=== PATIENT | female | born 1985 | race Caucasian/White ===

== ENCOUNTER 2016-11-29 23:34 | Emergency (ER) | payer MEDICAID ==
[~2016-11-29] VITALS: Ht 165.1 cm; Wt 98.0 kg
[2016-11-29 23:36] VITALS: BP 126/90
[2016-11-30] MEDS ORDERED: traMADol HCL 50 MG TAB PO ONE (03:15)
== END 2016-11-30 03:55 | disposition home or self-care (01) ==
LOC: ER 23:36
DX: S05.12XA Contusion of eyeball and orbital tissues, left eye, initial encounter (principal); F17.210 Nicotine dependence, cigarettes, uncomplicated; Y08.89XA Assault by other specified means, initial encounter; Y93.89 Activity, other specified; Y99.8 Other external cause status; Y92.89 Other specified places as the place of occurrence of the external cause
CPT/HCPCS: 70480

== ENCOUNTER 2018-01-16 10:54 | Emergency (ER) | payer MEDICAID ==
[~2018-01-16] VITALS: Ht 165.1 cm; Wt 90.7 kg
[2018-01-16 11:26] VITALS: BP 130/76
[2018-01-16] MEDS ORDERED: cefTRIAXone SOD 1,000 MG VL IM ONE (12:45)
[2018-01-16] MEDS ORDERED: LIDOCAINE W/ EPINEPHRINE 1 % INJ 30ML ONE (12:47)
== END 2018-01-16 14:30 | disposition home or self-care (01) ==
LOC: ER 10:54
DX: J02.0 Streptococcal pharyngitis (principal); F17.210 Nicotine dependence, cigarettes, uncomplicated
CPT/HCPCS: J0696

== ENCOUNTER 2020-11-07 21:34 | Emergency (ER) | payer MEDICAID ==
[~2020-11-07] VITALS: Ht 165.1 cm; Wt 90.7 kg
[2020-11-07] MEDS ORDERED: SODIUM CHLORIDE 0.9% 1,000 ML IV ONE (21:45)
[2020-11-07] MEDS ORDERED: EPINEPHrine HCL 1 MG/1 ML AMP SC ONE (21:45)
[2020-11-07] MEDS ORDERED: diphenhdrAMINE HCL 50 MG/1 ML VL IV ONE (21:45)
[2020-11-07] MEDS ORDERED: methylPREDNISolone SOD SUCC 125 MG/2 ML VL IV ONE (21:45)
[2020-11-07] MEDS ORDERED: diphenhdrAMINE HCL 12.5 MG/5 ML UD PO ONE (22:45)
[2020-11-07 23:00] VITALS: BP 141/89
[2020-11-07 23:17] LABS: Basophils # (auto) 0 10 ^3/uL (0-0.2); Basophils % (auto) 0.5 % (0.0-2.0); Eosinophils # (auto) 0.2 10 ^3/uL (0-0.8); Eosinophils % (auto) 2.5 % (0.0-7.0); Hematocrit 43.8 % (36.0-46.0); Hemoglobin 14.8 g/dL (12.2-16.2); Lymphocytes # (auto) 2.3 10 ^3/uL (0.4-5.4); Lymphocytes % (auto) 25.9 % (10.0-50.0); Mean Corpuscular Hemoglobin 29.2 pg (28.0-32.0); Mean Corpuscular Hgb Conc. 33.9 g/dL (32.0-36.0); Mean Corpuscular Volume 86.4 fL (80.0-100.0); Monocytes # (auto) 0.7 10 ^3/uL (0-1.3); Monocytes % (auto) 7.3 % (0.0-12.0); Neutrophils # (auto) 5.8 10 ^3/uL (1.6-8.6); Neutrophils % (auto) 63.8 % (37.0-80.0); Nucleated Red Blood Cells % 0.1 %; Red Blood Cells 5.07 10^6/uL (4.0-5.20); Red Cell Distribution Width 13.9 % (11.8-14.3)
[2020-11-07 23:28] LABS: Potassium 3.6 mmol/L (3.5-5.1)
[2020-11-07 23:35] LABS: Albumin 3.5 g/dL (3.4-5.0); BUN/Creatinine Ratio 14.9; Bilirubin, Total 0.3 mg/dL (0.2-1.0); Calcium 8.7 mg/dL (8.5-10.1); Total Protein 7.5 g/dL (6.4-8.2)
== END 2020-11-07 23:41 | disposition home or self-care (01) ==
LOC: ER 21:35
DX: R22.0 Localized swelling, mass and lump, head (principal); T50.995A Adverse effect of other drugs, medicaments and biological substances, initial encounter; F17.210 Nicotine dependence, cigarettes, uncomplicated; Z98.890 Other specified postprocedural states; Y92.89 Other specified places as the place of occurrence of the external cause
CPT/HCPCS: 36415; 80053; 85025; 96360; 96372; 99283; J0171; J1200; J2930

== ENCOUNTER → 2022-10-21 | Emergency (ER) | payer MEDICAID ==
[~2022-10-21] VITALS: Ht 170.2 cm; Wt 97.7 kg
[2022-10-21 03:12] VITALS: BP 116/84; PULSE 107; RESP 20; O2SAT 99
== END | disposition left against medical advice (07) ==
LOC: ER 02:34
DX: M54.50 Low back pain, unspecified (principal); Z53.21 Procedure and treatment not carried out due to patient leaving prior to being seen by health care provider
CPT/HCPCS: 72100

== ENCOUNTER 2022-11-10 17:55 | Emergency (ER) | payer MEDICAID ==
[~2022-11-10] VITALS: Ht 165.1 cm; Wt 94.7 kg
[2022-11-10 20:11] VITALS: BP 116/80; PULSE 92; RESP 18; TEMP 98; O2SAT 95
== END 2022-11-10 20:53 | disposition left against medical advice (07) ==
LOC: ER 17:55
DX: M54.50 Low back pain, unspecified (principal); Z53.21 Procedure and treatment not carried out due to patient leaving prior to being seen by health care provider

== ENCOUNTER 2024-04-11 17:37 | Emergency (ER) | payer MEDICAID ==
[~2024-04-11] VITALS: Ht 165.1 cm; Wt 101.2 kg
[2024-04-11 18:21] VITALS: BP 134/82; PULSE 87; RESP 16; TEMP 97.6; O2SAT 98
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
== END 2024-04-11 18:55 | disposition home or self-care (01) ==
LOC: ER 17:37
DX: S80.11XA Contusion of right lower leg, initial encounter (principal); F17.210 Nicotine dependence, cigarettes, uncomplicated; W51.XXXA Accidental striking against or bumped into by another person, initial encounter; Y93.89 Activity, other specified; Y92.89 Other specified places as the place of occurrence of the external cause; Y99.8 Other external cause status
CPT/HCPCS: 73590

== ENCOUNTER 2024-07-29 02:45 | Emergency (ER) | payer MEDICAID ==
[~2024-07-29] VITALS: Ht 165.1 cm; Wt 100.9 kg
[2024-07-29 03:00] VITALS: BP 134/58; PULSE 95; RESP 18; TEMP 98.3; O2SAT 99
--- NOTE | 2024-07-29 03:22 | ED.PDOC ---
General HPI Comments PATIENT C/O LEFT SIDED BACK PAIN, BILATERAL HAND NUMBNESS, DECREASED CONTROL OF HER BLADDER (URGENCY,) LEFT BODY PAIN WITH STEPPING. 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 Family History Family History: Unknown Social History Smoker: Cigarettes Alcohol: Denies ETOH Use Drugs: Denies Drug Use Lives In: Home Constitutional: denies: chills, diaphoresis, fatigue, fever, malaise, sweats, weakness, others EENTM: denies: blurred vision, double vision, ear bleeding, ear discharge, ear drainage, ear pain, ear ringing, eye pain, eye redness, hearing loss, mouth pain, mouth swelling, nasal discharge, nose bleeding, nose congestion, nose pain, photophobia, tearing, throat pain, throat swelling, voice changes, others Respiratory: denies: cough, hemoptysis, orthopnea, SOB at rest, shortness of breath, SOB with excertion, stridor, wheezing, others Cardiovascular: denies: chest pain, dizzy spells, diaphoresis, Dyspnea on exertion, edema, irregular heart beat, left arm pain, lightheadedness, palpitations, PND, syncope, others Gastrointestinal: denies: abdomen distended, abdominal pain, blood streaked bowels, constipated, diarrhea, dysphagia, difficulty swallowing, hematemesis, melena, nausea, poor appetite, poor fluid intake, rectal bleeding, rectal pain, vomiting, others Genitourinary: reports: flank pain, frequency; denies: abnormal vagina bleeding, burning, dyspareunia, dysuria, hematuria, incontinence, pain, , vagina discharge, urgency, others Neurological: denies: dizziness, fainting, headache, left sided numbness, left sided weakness, numbness, paresthesia, pre-existing deficit, right sided numbness, right sided weakness, seizure, speech problems, tingling, tremors, weakness, others Musculoskeletal: denies: back pain, gout, joint pain, joint swelling, muscle pain, muscle stiffness, neck pain, others Integumetry: denies: bruises, change in color, change in hair/nails, dryness, laceration, lesions, lumps, rash, wounds, others Allergic/Immunocompromised: denies: Difficulty Healing, Frequent Infections, Hives, Itching, others Hematologic/Lymphatic: denies: anemia, blood clots, easy bleeding, easy bruising, swollen glands, others Endocrine: denies: excessive hunger, excessive sweating, excessive thirst, excessive urination, flushing, intolerance to cold, intolerance to heat, unexplained weight gain, unexplained weight loss, others Psychiatric: denies: anxiety, bipolar disorder, depression, hopeless, panic disorder, schizophrenia, sleepless, suicidal, others Physical Exam General Appearance: No Apparent Distress, Normal HEENT: Pharynx Normal Neck: Full Range of Motion, Non-Tender Respiratory: Lungs Clear, No Respiratory Distress, Normal Breath Sounds Cardiovascular: No Murmur, Normal Peripheral Pulses, Regular Rate/Rhythm Breast Exam: Deferred Gastrointestinal: No Organomegaly, Non Tender, No Pulsatile Mass, Normal Bowel Sounds, Soft, Suprapubic, Tenderness, Other (Positive CVA tenderness) Genitalia: Deferred Pelvic: Deferred Rectal: Deferred Extremities: Normal range of motion Musculoskeletal : Apperance: Normal Neurologic: Alert, No Motor Deficits, Normal Affect, Normal Mood, No Sensory Deficits Cerebellar Function: Normal Reflexes: Normal Skin: Dry, Normal Color, Warm Lymphatic: No Adenopathy Was a procedure done? Was a procedure done?: No Differential Diagnosis Kidney stone (Female): Pyelonephritis, Strain, Urinary obstruction, Urolithiasis X-Ray, Labs, Meds, VS Vital Signs Date Time Temp Pulse Resp B/P (MAP) Pulse Ox O2 Delivery O2 Flow Rate FiO2 07/29/24 03:00 98.3 95 18 134/58 (83) 99 98.3 X-Ray, Labs, Meds, VS Comment LOBBY, OUTSIDE, AND 10 X 3 PATIENT NO ANSWER Time of 1ST Reevaluation: 03:20 Reevaluation 1ST: Unchanged Patient Education/Counseling: Diagnosis, Treatment, Prognosis, Need For Follow Up Family Education/Counseling: No Family Present Departure 1 Departure Time of Disposition: 05:09 Impression: Primary Impression: Back pain Qualified Codes: M54.50 - Low back pain, unspecified Disposition: LEFT AWOL/ELOPED Condition: Stable Discharged With: Self Critical Care Note Critical Care Time?: No Stability Stability form required: LES Diaz Jul 29, 2024 03:22
== END 2024-07-29 05:08 | disposition left against medical advice (07) ==
LOC: ER 02:45
DX: M54.9 Dorsalgia, unspecified (principal); F17.210 Nicotine dependence, cigarettes, uncomplicated

== ENCOUNTER 2024-07-29 15:26 | Inpatient (IN) | payer MEDICAID ==
[~2024-07-29] VITALS: Ht 165.1 cm; Wt 101.0 kg
[2024-07-29 15:32] VITALS: TEMP 97.7
--- NOTE | 2024-07-29 15:40 | ED.PDOC ---
Back pain HPI HPI Comments 39-year-old female brought in by family complaining of lower back pain since yesterday. Patient reports urinary incontinence that started a week ago, without dysuria, abdominal pain, flank pain or urinary frequency. She states she was doing yd work and moving some rocks yesterday, after which she developed severe low back pain. She came to ER yesterday for evaluation of her pain but decided not to stay. She states she woke up this morning with severe low back pain, was unable to ambulate due to the pain, so return to the ER. Denies any extremity weakness, but states she has still been having occasional urinary incontinence. 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 Family History Family History: Reviewed,noncontributory to illness, Unknown Social History Smoker: Unknown Alcohol: Unknown Drugs: Unknown Lives In: Home Constitutional: denies: chills, diaphoresis, fatigue, fever, malaise, sweats, weakness, others EENTM: denies: blurred vision, double vision, ear bleeding, ear discharge, ear drainage, ear pain, ear ringing, eye pain, eye redness, hearing loss, mouth pain, mouth swelling, nasal discharge, nose bleeding, nose congestion, nose pain, photophobia, tearing, throat pain, throat swelling, voice changes, others Respiratory: denies: cough, hemoptysis, orthopnea, SOB at rest, shortness of breath, SOB with excertion, stridor, wheezing, others Cardiovascular: denies: chest pain, dizzy spells, diaphoresis, Dyspnea on exertion, edema, irregular heart beat, left arm pain, lightheadedness, palpitations, PND, syncope, others Gastrointestinal: denies: abdomen distended, abdominal pain, blood streaked bowels, constipated, diarrhea, dysphagia, difficulty swallowing, hematemesis, melena, nausea, poor appetite, poor fluid intake, rectal bleeding, rectal pain, vomiting, others Genitourinary: denies: abnormal vagina bleeding, burning, dyspareunia, dysuria, flank pain, frequency, hematuria, incontinence, pain, , vagina discharge, urgency, others Neurological: denies: dizziness, fainting, headache, left sided numbness, left sided weakness, numbness, paresthesia, pre-existing deficit, right sided numbness, right sided weakness, seizure, speech problems, tingling, tremors, weakness, others Musculoskeletal: reports: back pain; denies: gout, joint pain, joint swelling, muscle pain, muscle stiffness, neck pain, others Integumetry: denies: bruises, change in color, change in hair/nails, dryness, laceration, lesions, lumps, rash, wounds, others Allergic/Immunocompromised: denies: Difficulty Healing, Frequent Infections, Hives, Itching, others Hematologic/Lymphatic: denies: anemia, blood clots, easy bleeding, easy bruising, swollen glands, others Endocrine: denies: excessive hunger, excessive sweating, excessive thirst, excessive urination, flushing, intolerance to cold, intolerance to heat, unexplained weight gain, unexplained weight loss, others Psychiatric: denies: anxiety, bipolar disorder, depression, hopeless, panic disorder, schizophrenia, sleepless, suicidal, others All Other Systems: Reviewed and Negative Physical Exam General Appearance: Mild Distress HEENT: Other (Pupils and face symmetric. Moist mucous membranes.) Neck: Full Range of Motion, Non-Tender, Normal Inspection Respiratory: Lungs Clear, No Accessory Muscle Use, No Respiratory Distress, Normal Breath Sounds Cardiovascular: No Edema, No JVD, Regular Rate/Rhythm Breast Exam: Deferred Gastrointestinal: Non Tender, Soft Genitalia: Deferred Pelvic: Deferred Rectal: Deferred Extremities: No calf tenderness, Normal inspection, Normal range of motion, Non-tender, No pedal edema Musculoskeletal : Apperance: Normal Neurologic: Alert (Oriented x4), No Motor Deficits, Other (Diminished sensation bilateral hands thumb through 4th fingers) Cerebellar Function: NOT DONE Reflexes: NOT DONE Skin: Dry, Normal Color, Warm Lymphatic: NOT DONE Was a procedure done? Was a procedure done?: No Back Pain Differential Dx Differential Diagnosis: DJD, Musculoskeletal Pain, Strain, Urolithiasis, Other (Disc disease, cord compression/spinal stenosis, among others) X-Ray, Labs, Meds, VS Vital Signs Date Time Temp Pulse Resp B/P (MAP) Pulse Ox O2 Delivery O2 Flow Rate FiO2 07/29/24 17:17 81 18 106/54 (71) 99 07/29/24 17:17 77 18 99 Room Air 07/29/24 15:32 97.7 90 16 113/79 (90) 99 97.7 Lab Test 07/29/24 17:00 07/29/24 15:57 Range/Units Urine Color Yellow Yellow Urine Clarity Clear Clear Urine pH 6.5 5.0-9.0 Urine Specific Paia 1.021 1.001-1.035 Urine Protein Negative Negative Urine Ketones Negative Negative Urine Blood Negative Negative /uL Urine Nitrite Negative Negative Urine Bilirubin Negative Negative Urine Urobilinogen Normal Negative mg/dL Urine Leukocyte Esterase Negative Negative /uL Urine RBC None seen 0 - 4 /hpf Urine Microscopic WBC 1 0-5 /HPF Urine Squamous Epithelial Cells Mod <5 /hpf Urine Bacteria None seen None Seen /hpf Urine Mucus Few None Seen Urine Glucose Normal Normal mg/dL Urine Test Negative Negative White Blood Count 7.9 4.4-10.8 10^3/uL Red Blood Count 5.16 4.0-5.20 10^6/uL Hemoglobin 14.9 12.2-16.2 g/dL Hematocrit 44.5 36.0-46.0 % Mean Corpuscular Volume 86.4 80.0-100.0 fL Mean Corpuscular Hemoglobin 28.9 28.0-32.0 pg Mean Corpuscular Hemoglobin Concent 33.4 32.0-36.0 g/dL Red Cell Distribution Width 14.5 H 11.8-14.3 % Platelet Count 246 140-450 10^3/uL Mean Platelet Volume 9.0 6.9-10.8 fL Neutrophils (%) (Auto) 55.5 37.0-80.0 % Lymphocytes (%) (Auto) 34.2 10.0-50.0 % Monocytes (%) (Auto) 7.0 0.0-12.0 % Eosinophils (%) (Auto) 2.8 0.0-7.0 % Basophils (%) (Auto) 0.5 0.0-2.0 % Neutrophils # (Auto) 4.4 1.6-8.6 10 ^3/uL Lymphocytes # (Auto) 2.7 0.4-5.4 10 ^3/uL Monocytes # (Auto) 0.5 0-1.3 10 ^3/uL Eosinophils # (Auto) 0.2 0-0.8 10 ^3/uL Basophils # (Auto) 0 0-0.2 10 ^3/uL Nucleated Red Blood Cells 0.0 % Sodium Level 141 136-145 mmol/L Potassium Level 4.1 3.5-5.1 mmol/L Chloride Level 108 H 98-107 mmol/L Carbon Dioxide Level 29 20-31 mmol/L Anion Gap 4 L 5-15 Blood Urea Nitrogen 7 L 9-23 mg/dL Creatinine 0.75 0.550-1.02 mg/dL Glomerular Filtration Rate Calc 105 >90 mL/min BUN/Creatinine Ratio 9.3 L 10.0-20.0 Serum Glucose 87 74-106 mg/dL Calcium Level 9.6 8.7-10.4 mg/dL Current Medications Medications (Trade) Dose Ordered Sig/Anjelica Route Start Time Stop Time Status Last Admin Acetaminophen/ Hydrocodone Bitart (Bromide 10/325MG Tab) 1 tab ONCE ONCE PO 07/29/24 15:45 07/29/24 15:46 DC 07/29/24 17:27 Methocarbamol (Robaxin) 1,000 mg ONCE ONCE PO 07/29/24 17:00 07/29/24 17:02 DC 07/29/24 17:35 PROCEDURE(s): TS2CT - THORACIC SPINE WO CONTRAS REASON: back pain, urinary incontinence ORDER NUMBER(s): [id number], ACCESSION NUMBER(s): [id number] CT OF THE THORACIC SPINE WITHOUT CONTRAST HISTORY: back pain, urinary incontinence COMPARISON: None TECHNIQUE: Axial images through the thoracic spine were obtained without contrast. Coronal and sagittal reformats were obtained. One or more of the following radiation dose reduction techniques were used for this examination: automated exposure control, adjustment of the mA and/or kV according to patient size, use of iterative reconstruction technique. FINDINGS: No grossly displaced fractures or subluxations identified. Vertebral body heights appear maintained. The bony spinal canal is patent. Scattered intervertebral disc space narrowing with anterior marginal osteophyte formation. Atrophic changes of the left kidney partially imaged. IMPRESSION: No acute osseous abnormalities identified. If there is persistent clinical concern, MRI may be considered to further evaluate. EDURE(s): LS2CT - LS SPINE WO CONTRAST REASON: back pain, urinary incontinence ORDER NUMBER(s): [id number], ACCESSION NUMBER(s): [id number] EXAM: CT LS SPINE WO CONTRAST INDICATION: back pain, urinary incontinence COMPARISON: None TECHNIQUE: Multiple axial CT images of the lumbar spine were obtained using bone algorithm. Axial and coronal reformatting was done. Bone and soft tissue windows were reviewed. Radiation Dose Information: CT Dose: CTDI volume is 25 mGy. Dose-length product is 250 mGy*cm FINDINGS: No CT evidence of acute fracture or traumatic mal-alignment. The visualized paraspinal soft tissues are grossly unremarkable. The disc spaces are relatively preserved. There is multilevel degenerative change of the spine, with disc space narrowing, subchondral sclerosis, and marginal osteophyte formation. IMPRESSION: No CT evidence of acute fracture or traumatic mal-alignment of the bony lumbar spine. Radiation optimization: All CT scans at this facility use at least one of these dose optimization techniques: automated exposure control mA and/or kV adjustment per patient size (includes targeted exams where dose is matched to clinical indication) or iterative reconstruction. X-Ray, Labs, Meds, VS Comment 39-year-old female with no significant past medical history complaining of back pain and urinary incontinence Vitals unremarkable Exam remarkable for thoracic and lumbar midline and left paraspinal tenderness Rhythm strip independently interpreted by me: Sinus rhythm, rate 90, no ectopy. CT thoracic spine IMPRESSION: No acute osseous abnormalities identified. If there is persistent clinical concern, MRI may be considered to further evaluate. CT L/S spine IMPRESSION: No CT evidence of acute fracture or traumatic mal-alignment of the bony lumbar spine. CBC and basic metabolic panel unremarkable, UA unremarkable and urine negative Patient treated with the following in the ED: Toradol 30 mg IV, dexamethasone 10 mg IV, Pepcid 20 mg IV, Bromide 10/325 mg p.o., Robaxin 1 g p.o. On re-evaluation, pain has improved, however patient is still having inability to ambulate due to pain. Plan is to admit the patient for spine MRI and ortho/spine evaluation. Time of 1ST Reevaluation: 16:00 Reevaluation 1ST: Unchanged Time of 2ND Reevaluation: 17:00 Reevaluation 2ND: Improved Patient Education/Counseling: Diagnosis, Treatment, Prognosis Family Education/Counseling: No Family Present Departure 1 Departure Time of Disposition: 19:16 Impression: Primary Impression: Intractable back pain Additional Impression: Urinary incontinence Qualified Codes: R32 - Unspecified urinary incontinence Disposition: ADMITTED INPATIENT Admit to: Med Surg Condition: Guarded Critical Care Note Critical Care Time?: No Stability Stability form required: No Heart Score Heart Score: Heart Score Response (Comments) Value History N/A 0 EKG N/A 0 Age N/A 0 Risk Factors N/A 0 Troponin N/A 0 Total 0 I personally scribed for SHANNON POOL MD ([email or web address]) on 07/29/24 at 15:40. Electronically submitted by Enmanuel Stover ([email or web address]). SHANNON POOL MD Jul 29, 2024 15:40
[2024-07-29] MEDS: FAMOTIDINE (10MG/ML) 2ML VL IV ONE (15:45)
[2024-07-29] MEDS: DexAMETHasone SOD PHOS 10MG/1ML VIAL INJ IV ONE (15:45)
[2024-07-29] MEDS: KETOROLAC TROMETH 30 MG/ML 1ML VIAL IV ONE (15:45)
[2024-07-29 16:12] LABS: Basophils # (auto) 0 10 ^3/uL (0-0.2); Basophils % (auto) 0.5 % (0.0-2.0); Eosinophils # (auto) 0.2 10 ^3/uL (0-0.8); Eosinophils % (auto) 2.8 % (0.0-7.0); Hematocrit 44.5 % (36.0-46.0); Hemoglobin 14.9 g/dL (12.2-16.2); Lymphocytes # (auto) 2.7 10 ^3/uL (0.4-5.4); Lymphocytes % (auto) 34.2 % (10.0-50.0); Mean Corpuscular Hemoglobin 28.9 pg (28.0-32.0); Mean Corpuscular Hgb Conc. 33.4 g/dL (32.0-36.0); Mean Corpuscular Volume 86.4 fL (80.0-100.0); Monocytes # (auto) 0.5 10 ^3/uL (0-1.3); Neutrophils # (auto) 4.4 10 ^3/uL (1.6-8.6); Neutrophils % (auto) 55.5 % (37.0-80.0); Platelet Count (auto) 246 10^3/uL (140-450); Red Blood Cells 5.16 10^6/uL (4.0-5.20); Red Cell Distribution Width 14.5 % (11.8-14.3); White Blood Cell 7.9 10^3/uL (4.4-10.8)
[2024-07-29 16:19] LABS: Potassium 4.1 mmol/L (3.5-5.1); Sodium 141 mmol/L (136-145)
[2024-07-29 16:20] LABS: Anion Gap 4 (5-15); Carbon Dioxide 29 mmol/L (20-31)
[2024-07-29 16:21] LABS: Calcium 9.6 mg/dL (8.7-10.4)
[2024-07-29 16:23] LABS: Chloride 108 mmol/L (98-107)
[2024-07-29 16:26] LABS: BUN/Creatinine Ratio 9.3 (10.0-20.0); Glucose 87 mg/dL (74-106)
[2024-07-29 16:36] LABS: Blood Urea Nitrogen 7 mg/dL (9-23)
[2024-07-29 17:06] LABS: Urine Bacteria None Seen /hpf (None Seen)
[2024-07-29 17:17] VITALS: BP 106/54; PULSE 77; RESP 18; O2SAT 99
[2024-07-29 17:18] LABS: Urine Blood Negative /uL (Negative); Urine Clarity Clear (Clear); Urine Color Yellow (Yellow); Urine Mucus FEW (None Seen); Urine Protein, UAD Negative (Negative); Urine Specific Gravity 1.021 (1.001-1.035); Urine Squamous Epithelial Cell MOD /hpf (<5); Urine Urobilinogen Normal (Negative); Urine WBC 1 /HPF (0-5); Urine pH 6.5 (5.0-9.0)
[2024-07-29] MEDS: HYDROcodone-ACET 10/325MG TAB PO ONE (17:27)
[2024-07-29] MEDS: METHOCARBAMOL 500 MG TAB PO ONE (17:35)
--- NOTE | 2024-07-29 18:56 | DVH ---
CT OF THE THORACIC SPINE WITHOUT CONTRAST HISTORY: back pain, urinary incontinence COMPARISON: None TECHNIQUE: Axial images through the thoracic spine were obtained without contrast. Coronal and sagitt al reformats were obtained. One or more of the following radiation dose reduction techniques were use d for this examination: automated exposure control, adjustment of the mA and/or kV according to patie nt size, use of iterative reconstruction technique. FINDINGS: No grossly displaced fractures or subluxations identified. Vertebral body heights appear maintained. The bony spinal canal is patent. Scattered intervertebral disc space narrowing with anterior marginal osteophyte formation. Atrophic changes of the left kidney partially imaged. IMPRESSION: No acute osseous abnormalities identified. If there is persistent clinical concern, MRI may be consid ered to further evaluate.
--- NOTE | 2024-07-29 19:01 | DVH ---
EXAM: CT LS SPINE WO CONTRAST INDICATION: back pain, urinary incontinence COMPARISON: None TECHNIQUE: Multiple axial CT images of the lumbar spine were obtained using bone algorithm. Axial an d coronal reformatting was done. Bone and soft tissue windows were reviewed. Radiation Dose Information: CT Dose: CTDI volume is 25 mGy. Dose-length product is 250 mGy*cm FINDINGS: No CT evidence of acute fracture or traumatic mal-alignment. The visualized paraspinal soft tissues a re grossly unremarkable. The disc spaces are relatively preserved. There is multilevel degenerative change of the spine, with disc space narrowing, subchondral sclerosis, and marginal osteophyte formation. IMPRESSION: No CT evidence of acute fracture or traumatic mal-alignment of the bony lumbar spine. Radiation optimization: All CT scans at this facility use at least one of these dose optimization reji hniques: automated exposure control mA and/or kV adjustment per patient size (includes targeted exam s where dose is matched to clinical indication) or iterative reconstruction.
[2024-07-29] MEDS ORDERED: ACETAMINOPHEN 325 MG TAB PO PRN (20:45)
[2024-07-29] MEDS ORDERED: SODIUM CHLORIDE 0.9% 1,000 ML IV SCH (20:45)
[2024-07-29] MEDS ORDERED: CYCLOBENZAPRINE HCL 10 MG TAB PO ONE (20:45)
[2024-07-29] MEDS ORDERED: HYDROcodone-ACET 5/325MG TAB PO PRN (20:45)
--- NOTE | 2024-07-29 20:54 | DVHHPRES ---
History of Present Illness Resident Creating Document: ALFONSO PHILLIPS History of Present Illness This is a 39-year-old female with no past medical history of relevance was not taking any medications at home. The patient presented to the ED due to acute lower back pain. The patient came yesterday to the ED for similar symptoms but decided not to get admitted at that time. The pain got worse this morning which was difficulty ambulation and returned to the ED. the patient states that the lower back pain started two days ago after moving heavy rocks on her backyard. The patient described the pain as a sharp cramping pain in the left lower back rated as 10/10 on the pain scale that states localized in the left lower back and radiates to the left shoulder. The patient denies any lower extremity shooting pain or burning sensation. The patient also reports associated numbness in the fingers of bilateral hands. The patient also reported urinary incontinence that started one week ago but denies any dysuria, burning sensation while pain or any other urinary symptoms. Initial lumbar spine CT and thoracic spine CT showed no acute fractures or traumatic malalignment of the bony lumbar spine and no osseous abnormalities. On my examination, the pain is worse in the left lateral aspect of the parasternal muscles of the lower back. The patient has excruciating pain 10/10 at this time and is unable to walk by herself, currently using a wheelchair reason why was decided to admitted for pain management. No past medical history of relevance, no home medications Social history: Does methamphetamine occasionally and smokes five cigarettes per day. Surgical history: in 2012 Past Surgical History: Family History: None Smoke: 1 pack per day ALCOHOL: none Drugs: Other (methamphetamines) Lives: with Family Domestic Violence: Neg Review of Systems Constitutional: No: Fever, Chills, Sweats, Weakness, Malaise, Other Eyes: No: Pain, Vision change, Conjunctivae inflammation, Eyelid inflammation, Other, Redness ENT: No: Ear pain, Ear discharge, Nose pain, Nose discharge, Nose congestion, Mouth pain, Mouth swelling, Throat pain, Throat swelling, Other Respiratory: No: Cough, Dry, Shortness of breath, SOB with excertion, Wheezing, Hemoptysis, Pleuritic Pain, Sputum, Wheezing, Other Cardiovascular: No: Chest Pain, Palpitations, Orthopnea, Paroxysmal Noc. Dyspnea, Edema, Lt Headedness, Other Gastrointestinal: No: Nausea, Vomiting, Abdominal Pain, Diarrhea, Constipation, Melena, Hematochezia, Other Genitourinary: No Dysuria, No Frequency, No Incontinence, No Hematuria, No Retention, No Other Musculoskeletal: neck pain, shoulder pain, back pain; No: other, arm pain, hand pain, leg pain, foot pain Skin: No: Rash, Lesions, Jaundice, Bruising, Other Neurological: No: Weakness, Numbness, Incoordination, Change in speech, Confusion, Seizures, Other Allergies: Coded Allergies: NO KNOWN ALLERGIES (Unverified , 11/29/16) Medications Current Medications Medications Dose Ordered Sig/Anjelica Route Start Time Stop Time Status Last Admin Dose Admin Sodium Chloride 1,000 ml @ 60 mls/hr [id number] IV 07/29/24 20:45 UNV Acetaminophen 650 mg Q6HP PRN PO 07/29/24 20:45 UNV Acetaminophen/ Hydrocodone Bitart 1 tab Q4HP PRN PO 07/29/24 20:45 UNV Exam Vital Signs Vital Signs Date Time Temp Pulse Resp B/P (MAP) Pulse Ox O2 Delivery O2 Flow Rate FiO2 07/29/24 17:17 81 18 106/54 (71) 99 07/29/24 17:17 Room Air 07/29/24 15:32 97.7 97.7 General Appearance: Alert, Oriented X3, Cooperative, mild distress HEENT: Atraumatic, PERRLA, EOMI, Mucous membr. moist/pink Respiratory: Clear to auscultation, Normal air movement Cardiovascular: Regular rate, Normal S1, Normal S2, No murmurs Abdominal: Normal bowel sounds, Soft, No tenderness, No hepatospenomegaly Extremities: No clubbing, No cyanosis, No edema, Normal pulses, No tenderness/swelling Skin: No rashes, No breakdown, No significant lesion Neuro: Normal gait, Normal speech, Strength at 5/5 X4 ext, Normal tone, Sensation intact, Cranial nerves 3-12 NL, Reflexes 2+ Psych/Mental Status: Mental status NL, Mood NL Labs/Xrays Labs Test 07/29/24 17:00 07/29/24 15:57 Range/Units Urine Color Yellow Yellow Urine Clarity Clear Clear Urine pH 6.5 5.0-9.0 Urine Specific [place] 1.021 1.001-1.035 Urine Protein Negative Negative Urine Ketones Negative Negative Urine Blood Negative Negative /uL Urine Nitrite Negative Negative Urine Bilirubin Negative Negative Urine Urobilinogen Normal Negative mg/dL Urine Leukocyte Esterase Negative Negative /uL Urine RBC None seen 0 - 4 /hpf Urine Microscopic WBC 1 0-5 /HPF Urine Squamous Epithelial Cells Mod <5 /hpf Urine Bacteria None seen None Seen /hpf Urine Mucus Few None Seen Urine Glucose Normal Normal mg/dL Urine Test Negative Negative White Blood Count 7.9 4.4-10.8 10^3/uL Red Blood Count 5.16 4.0-5.20 10^6/uL Hemoglobin 14.9 12.2-16.2 g/dL Hematocrit 44.5 36.0-46.0 % Mean Corpuscular Volume 86.4 80.0-100.0 fL Mean Corpuscular Hemoglobin 28.9 28.0-32.0 pg Mean Corpuscular Hemoglobin Concent 33.4 32.0-36.0 g/dL Red Cell Distribution Width 14.5 H 11.8-14.3 % Platelet Count 246 140-450 10^3/uL Mean Platelet Volume 9.0 6.9-10.8 fL Neutrophils (%) (Auto) 55.5 37.0-80.0 % Lymphocytes (%) (Auto) 34.2 10.0-50.0 % Monocytes (%) (Auto) 7.0 0.0-12.0 % Eosinophils (%) (Auto) 2.8 0.0-7.0 % Basophils (%) (Auto) 0.5 0.0-2.0 % Neutrophils # (Auto) 4.4 1.6-8.6 10 ^3/uL Lymphocytes # (Auto) 2.7 0.4-5.4 10 ^3/uL Monocytes # (Auto) 0.5 0-1.3 10 ^3/uL Eosinophils # (Auto) 0.2 0-0.8 10 ^3/uL Basophils # (Auto) 0 0-0.2 10 ^3/uL Nucleated Red Blood Cells 0.0 % Sodium Level 141 136-145 mmol/L Potassium Level 4.1 3.5-5.1 mmol/L Chloride Level 108 H 98-107 mmol/L Carbon Dioxide Level 29 20-31 mmol/L Anion Gap 4 L 5-15 Blood Urea Nitrogen 7 L 9-23 mg/dL Creatinine 0.75 0.550-1.02 mg/dL Glomerular Filtration Rate Calc 105 >90 mL/min BUN/Creatinine Ratio 9.3 L 10.0-20.0 Serum Glucose 87 74-106 mg/dL Calcium Level 9.6 8.7-10.4 mg/dL Assessment/Plan Assessment/Plan Assessment/plan Acute lower back pain, likely musculoskeletal R/O lumbar radiculopathy -initial lumbar CT and thoracic spine CT showed no acute fracture or traumatic malalignment of the bony lumbar spine or osseous abnormalities -Start hot/cold patches alternating every 15min -Start muscle relaxants, Flexeril 10mg TID -Acetaminophen and Madison PRN -negative straight leg raise test -Start physical therapy and stretching exercises R/O UTI -Ordered UA Chronic drug abuser (Methamphetamines) -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 Rowell Plan discussed with: Patient My Orders Orders - ALFONSO PHILLIPS Procedure Category Date Status Time Admit ADMIT 07/29/24 Transmitted 20:34 Code Status CODE 07/29/24 Transmitted 20:34 Vital Signs JUAN PABLO 07/29/24 In Process 20:34 Review Orders With JUAN PABLO 07/29/24 In Process Adm. 20:34 Encourage Activity As JUAN PABLO 07/29/24 In Process Tolerate 20:34 Regular Diet DIET 07/30/24 Transmitted Breakfast Sodium Chloride 0.9% PHA 07/29/24 Logged 20:45 Acetaminophen Tablet PHA 07/29/24 Logged (Tylenol Tablet) 20:45 Notify Of Changes JUAN PABLO 07/29/24 In Process From Base 20:34 Advance Directive JUAN PABLO 07/29/24 In Process 20:34 Basic Metabolic Panel LAB 07/30/24 Verified 04:00 Complete Blood Count LAB 07/30/24 Verified 04:00 Lipid Panel LAB 07/29/24 In Process 20:34 Urine Bacterial MERARY 07/29/24 Logged Culture 20:34 Patient Condition ORDERS 07/29/24 Transmitted 20:34 Allergies JUAN PABLO 07/29/24 In Process 20:34 Hydrocodone-Acet PHA 07/29/24 Logged 5/325mg Tab (Madison 20:45 Drug Screen LAB 07/29/24 Logged 20:34 Hemoglobin A1c LAB 07/29/24 In Process 20:34 Cyclobenzaprine PHA 07/29/24 Transmitted Tablet (Flexeril 20:45 Cyclobenzaprine PHA 07/30/24 Transmitted Tablet (Flexeril 08:00 Date of Service: Jul 29, 2024 Billing Provider: GUILHERME ROWELL MD Common Visit Codes: [id number] INP/OBS CARE (HIGH) ALFONSO PHILLIPS RESIDENT Jul 29, 2024 20:54 GUILHERME ROWELL MD Jul 29, 2024 21:51
[2024-07-29 21:05] LABS: Cholesterol 175 mg/dL (< 200)
[2024-07-29 21:34] LABS: HDL Cholesterol 34 mg/dL (40-59); LDL Cholesterol 133 mg/dL (< 100); Triglycerides 151 mg/dL (< 150)
[2024-07-29 21:35] LABS: Amphetamine Screen, Urine Pos (NEGATIVE); Barbiturate Scree,Urine Neg (NEGATIVE); Benzodiazephine Screen, Urine Neg (NEGATIVE); Cannabinoid Screen, Urine Neg (NEGATIVE); Cocaine Screen, Urine Neg (NEGATIVE); Opiate Scree,Urine Neg (NEGATIVE); Phencyclidine Screen, Urine Neg (NEGATIVE)
[2024-07-30] MEDS ORDERED: CYCLOBENZAPRINE HCL 10 MG TAB PO SCH (06:00)
== END 2024-07-29 23:21 | disposition left against medical advice (07) | DRG 347 ==
LOC: ER 15:26 → OVERFLOW 20:34
PROVIDERS: ADMIT Student in an Organized Health Care Education/Training Program; ATTEND Emergency Medicine
DX: M54.16 Radiculopathy, lumbar region (principal); E66.01 Morbid (severe) obesity due to excess calories; N39.0 Urinary tract infection, site not specified; Z68.37 Body mass index [BMI] 37.0-37.9, adult; F17.210 Nicotine dependence, cigarettes, uncomplicated; Z71.6 Tobacco abuse counseling
CPT/HCPCS: 36415; 72128; 72131; 80048; 80061; 80307; 81001; 81025; 83036; 85025; 87086; G0378; J1100; J1885; J3490

== ENCOUNTER 2024-10-12 17:58 | Emergency (ER) | payer MEDICAID ==
[~2024-10-12] VITALS: Ht 165.1 cm; Wt 103.3 kg
[2024-10-12 18:00] VITALS: BP 135/73; RESP 18; TEMP 98.5; O2SAT 98
--- NOTE | 2024-10-12 18:29 | ED.PDOC ---
Back pain HPI HPI Comments 9-year-old female complaining of left arm pain times 12 hours. Patient reports sudden onset. She reports no known injury. She describes pain as sharp shooting starts left upper arm shoulder shooting down to mid arm anterior AC area. No significant past medical history. She denies any chest pain, dizziness, shortness of breath, difficulty breathing, known injury, nausea, vomiting, abdominal pain, numbness or weakness. 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 Family History Family History: Reviewed,noncontributory to illness, Unknown Social History Smoker: Unknown Alcohol: Unknown Drugs: Unknown Lives In: Home All Other Systems: Reviewed and Negative (see hpi) Physical Exam General Appearance: No Apparent Distress, Normal HEENT: Pharynx Normal Neck: Full Range of Motion, Non-Tender Respiratory: Lungs Clear, No Respiratory Distress, Normal Breath Sounds Cardiovascular: No Edema, No JVD, No Murmur, No Gallop, Normal Peripheral Pulses, Regular Rate/Rhythm Breast Exam: Deferred Gastrointestinal: No Organomegaly, Non Tender, No Pulsatile Mass, Normal Bowel Sounds, Soft Genitalia: Deferred Pelvic: Deferred Rectal: Deferred Extremities: Normal capillary refill, Normal range of motion, Non-tender, No pedal edema Musculoskeletal : Apperance: Normal Neurologic: Alert, No Motor Deficits, Normal Affect, Normal Mood, No Sensory Deficits Cerebellar Function: Normal Reflexes: NOT DONE Skin: Dry, Normal Color, Warm Lymphatic: No Adenopathy Was a procedure done? Was a procedure done?: No Back Pain Differential Dx Differential Diagnosis: Musculoskeletal Pain, Strain X-Ray, Labs, Meds, VS Vital Signs Date Time Temp Pulse Resp B/P (MAP) Pulse Ox O2 Delivery O2 Flow Rate FiO2 10/12/24 18:46 76 10/12/24 18:00 98.5 84 18 135/73 98 98.5 X-Ray, Labs, Meds, VS Comment EKG shows no acute ectopy or ST elevation. Reports pain has not improved since being here requesting discharge at this time. Advised to rest alternate between ice and heat likely muscle strain. Tylenol or Motrin as needed. Follow up with her PCP in 2-3 days for re-evaluation and annual blood work. ER return precautions patient indicates understanding and agrees with discharge plan of care. Time of 1ST Reevaluation: 18:15 Reevaluation 1ST: Unchanged Time of 2ND Reevaluation: 19:14 Reevaluation 2ND: Improved Patient Education/Counseling: Diagnosis, Treatment, Prognosis, Need For Follow Up Family Education/Counseling: No Family Present SEPSIS Sepsis Screen Date sepsis recognized/suspect: Oct 12, 2024 Time Sepsis recognized/suspect: 1801 Recent Procedure: No On Antibiotic Therapy: No Respiratory Rate >20: No Heart Rate >90: No Temp<36 C (96.8 F) or >38.3 C: No SBP <90 or MAP <65 mmHG: No New Acute Mental Status Change: No Is the patient on CPAP, BIPAP,: No Vital Signs Date Time Temp Pulse Resp B/P (MAP) Pulse Ox O2 Delivery O2 Flow Rate FiO2 10/12/24 18:46 76 10/12/24 18:00 98.5 84 18 135/73 98 98.5 Departure 1 Departure Time of Disposition: 18:53 Impression: Primary Impression: Muscle strain of left upper extremity Qualified Codes: S46.912A - Strain of unspecified muscle, fascia and tendon at shoulder and upper arm level, left arm, initial encounter Disposition: 01 HOME / SELF CARE / HOMELESS Condition: Stable Discharged With: Self Critical Care Note Critical Care Time?: No Stability Stability form required: LES Diaz Oct 12, 2024 18:28
[2024-10-12 18:46] VITALS: PULSE 76
--- NOTE | 2024-10-12 19:01 | ECG ---
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
== END 2024-10-12 19:13 | disposition home or self-care (01) ==
LOC: ER 17:58
DX: S46.912A Strain of unspecified muscle, fascia and tendon at shoulder and upper arm level, left arm, initial encounter (principal); X58.XXXA Exposure to other specified factors, initial encounter; Y93.89 Activity, other specified; Y92.89 Other specified places as the place of occurrence of the external cause; Y99.8 Other external cause status
CPT/HCPCS: 93005

== ENCOUNTER 2024-12-09 10:08 | Emergency (ER) | payer MEDICAID ==
[~2024-12-09] VITALS: Ht 165.1 cm; Wt 106.3 kg
[2024-12-09] MEDS ORDERED: IBUP-1454 PO (10:39)
[2024-12-09] MEDS ORDERED: CEPH500T PO (10:39)
--- NOTE | 2024-12-09 10:40 | ED.PDOC ---
History of Present Illness(SKN HPI Comments 39-year-old female presents to the ER with an insect bite x yesterday. The patient report on having a 2 x 2 cm bite to the left calf and a 12 x 8 cm erythematous plaque to the left anterior distal femur which is warm, firm and tender. There is redness and TTP. Denies any other symptoms at this time. Chief Complaint: Abscess Time Seen by MD: 10:10 Primary Care Provider: unknown History of Present Illness: Nurses Notes, Medications, Allergies Allergies: Coded Allergies: NO KNOWN ALLERGIES (Unverified , 11/29/16) Home Meds Active Scripts Ibuprofen (Ibuprofen) 600 Mg Tab, 1 TAB PO TID for 10 Days, #30 TAB 0 Refills Prov:KIERRA CASTRO NP 12/09/24 Cephalexin Monohydrate (Cephalexin) 500 Mg Tab, 1 TAB PO QID for 7 Days, #28 TAB 0 Refills Prov:KIERRA CASTRO STUDIO ENGINEER 12/09/24 Information Source: Patient Mode of Arrival: Ambulatory Severity: Moderate Timing: Hours Duration: Since onset, Hours Prehospital treatment: None Location: Leg (Anterior distal femur, and left calf.) Mechanism: Insect Object: None Condition of Object: None Retained Foreign Body: Unknown Wound Type: Other (Plaque) Tetanus: Unknown History of: None Associated Signs and Symptoms: Redness Past Medical History PAST MEDICAL HISTORY: Denies 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 Family History Family History: Reviewed,noncontributory to illness, Unknown Social History Smoker: Unknown Alcohol: Unknown Drugs: Unknown Lives In: Home Constitutional: denies: chills, diaphoresis, fatigue, fever, malaise, sweats, weakness, others EENTM: denies: blurred vision, double vision, ear bleeding, ear discharge, ear drainage, ear pain, ear ringing, eye pain, eye redness, hearing loss, mouth pain, mouth swelling, nasal discharge, nose bleeding, nose congestion, nose pain, photophobia, tearing, throat pain, throat swelling, voice changes, others Respiratory: denies: cough, hemoptysis, orthopnea, SOB at rest, shortness of breath, SOB with excertion, stridor, wheezing, others Cardiovascular: denies: chest pain, dizzy spells, diaphoresis, Dyspnea on exertion, edema, irregular heart beat, left arm pain, lightheadedness, palpitations, PND, syncope, others Gastrointestinal: denies: abdomen distended, abdominal pain, blood streaked bowels, constipated, diarrhea, dysphagia, difficulty swallowing, hematemesis, melena, nausea, poor appetite, poor fluid intake, rectal bleeding, rectal pain, vomiting, others Genitourinary: denies: abnormal vagina bleeding, burning, dyspareunia, dysuria, flank pain, frequency, hematuria, incontinence, pain, , vagina discharge, urgency, others Neurological: denies: dizziness, fainting, headache, left sided numbness, left sided weakness, numbness, paresthesia, pre-existing deficit, right sided numbness, right sided weakness, seizure, speech problems, tingling, tremors, weakness, others Musculoskeletal: denies: back pain, gout, joint pain, joint swelling, muscle pain, muscle stiffness, neck pain, others Integumetry: reports: others (Possible spider bite to the left anterior distal femur and left calf); denies: bruises, change in color, change in hair/nails, dryness, laceration, lesions, lumps, rash, wounds Allergic/Immunocompromised: denies: Difficulty Healing, Frequent Infections, Hives, Itching, others Hematologic/Lymphatic: denies: anemia, blood clots, easy bleeding, easy bruising, swollen glands, others Endocrine: denies: excessive hunger, excessive sweating, excessive thirst, excessive urination, flushing, intolerance to cold, intolerance to heat, unexplained weight gain, unexplained weight loss, others Psychiatric: denies: anxiety, bipolar disorder, depression, hopeless, panic disorder, schizophrenia, sleepless, suicidal, others All Other Systems: Reviewed and Negative Physical Exam Exam Comments 12 by 8 cm localized, firm, warm, tender to left anterior distal femur, no fluctuance The patient does have another 2 x 2 cm localized, firm, warm, tender to left calf, no fluctuance General Appearance: No Apparent Distress, Normal HEENT: Normal ENT Inspection, Pharynx Normal, TMs Normal Neck: Full Range of Motion, Non-Tender, Normal, Normal Inspection Respiratory: Chest Non-Tender, Lungs Clear, No Accessory Muscle Use, No Respiratory Distress, Normal Breath Sounds Cardiovascular: No Edema, No JVD, No Murmur, No Gallop, Normal Peripheral Pulses, Regular Rate/Rhythm Breast Exam: Deferred Gastrointestinal: No Organomegaly, Non Tender, No Pulsatile Mass, Normal Bowel Sounds, Soft Genitalia: Deferred Pelvic: Deferred Rectal: Deferred Extremities: No calf tenderness, Normal capillary refill, Normal inspection, Normal range of motion, Non-tender, No pedal edema Musculoskeletal : Apperance: Normal Neurologic: Alert, foot orthopedist II-XII nml as Tested, No Motor Deficits, Normal Affect, Normal Mood, No Sensory Deficits Cerebellar Function: Normal Reflexes: Normal Skin: Dry, Normal Color, Warm Lymphatic: No Adenopathy Was a procedure done? Was a procedure done?: No Differential Diagnosis (INTG) Differential Diagnosis: N/A Differential Diagnosis: N/A Differential Diagnosis: N/A Abscess: Abscess Differential Diagnosis: N/A X-Ray, Labs, Meds, VS Vital Signs Date Time Temp Pulse Resp B/P (MAP) Pulse Ox O2 Delivery O2 Flow Rate FiO2 12/09/24 10:54 84 16 97 Room Air 12/09/24 10:54 97.8 84 16 115/64 (81) 97 97.8 12/09/24 10:16 97.1 88 15 103/46 97 97.1 Current Medications Medications (Trade) Dose Ordered Sig/Anjelica Route Start Time Stop Time Status Last Admin Ceftriaxone Sodium (Rocephin) 1,000 mg ONCE ONCE IM 12/09/24 10:45 12/09/24 10:46 DC 12/09/24 10:48 X-Ray, Labs, Meds, VS Comment 39-year-old female presents to the ER with an insect bite. Patient arrives alert and oriented, ABC's intact, afebrile, vital signs stable, saturating well in room air Patient was given: Tetanus and ceftriaxone. Tolerated medications with no adverse reaction. Patient likely with local inflammatory response from possible insect bite/sting. No evidence of systemic reaction such as shortness of breath, diffuse rash, drooling, facial/lip swelling. Doubtful for cellulitis given no fever, minimal erythema, minimal warmth. However, will give hand-written prescription for keflex in case symptoms worsen. Patient remains with minimal symptoms. Remains hemodynamically stable. Thought safe for discharge home. Tylenol and/or motrin at home for pain. Benadryl for itchiness. Hydrocortisone for itchiness. Ice/cold compress for comfort. Follow-up with primary care doctor in 2-3 days. Return to ER as needed. Additional MDM Review of External, Non-ED records: External records reviewed. Discussion with independent historian (EMS, family) history obtained from the patient/parents (if applicable) at bedside Chronic conditions affecting care: None Social determinants of health affecting care: None Consideration of admission (observation or admission): I considered escalation of care to admission for this patient, however given the reassuring workup, the patient is safe for outpatient management. Discussion with the Radiology: No Tests considered but not performed: Prescription medication considered but not given: 12 lead EKG interpretation: Time of 1ST Reevaluation: 10:40 Reevaluation 1ST: Unchanged Patient Education/Counseling: Diagnosis, Treatment, Prognosis Family Education/Counseling: No Family Present SEPSIS Sepsis Screen Date sepsis recognized/suspect: Dec 09, 2024 Time Sepsis recognized/suspect: 1017 Recent Procedure: No On Antibiotic Therapy: No Respiratory Rate >20: No Heart Rate >90: No Temp<36 C (96.8 F) or >38.3 C: No SBP <90 or MAP <65 mmHG: No New Acute Mental Status Change: No Is the patient on CPAP, BIPAP,: No Vital Signs Date Time Temp Pulse Resp B/P (MAP) Pulse Ox O2 Delivery O2 Flow Rate FiO2 12/09/24 10:54 84 16 97 Room Air 12/09/24 10:54 97.8 84 16 115/64 (81) 97 97.8 12/09/24 10:16 97.1 88 15 103/46 97 97.1 Medications Medications Dose Ordered Sig/Anjelica Route Start Time Stop Time Status Last Admin Dose Admin Ceftriaxone Sodium 1,000 mg ONCE ONCE IM 12/09/24 10:45 12/09/24 10:46 DC 12/09/24 10:48 Departure 1 Departure Time of Disposition: 10:41 Impression: Primary Impression: Insect bite Qualified Codes: S70.362A - Insect bite (nonvenomous), left thigh, initial encounter; W57.XXXA - Bitten or stung by nonvenomous insect and other nonvenomous arthropods, initial encounter Disposition: 01 HOME / SELF CARE / HOMELESS Condition: Stable e-Prescriptions Ibuprofen (Ibuprofen) 600 Mg Tab 1 TAB PO TID for 10 Days, #30 TAB 0 Refills Prov: KIERRA CASTRO NP 12/09/24 Cephalexin Monohydrate (Cephalexin) 500 Mg Tab 1 TAB PO QID for 7 Days, #28 TAB 0 Refills Prov: KIERRA CASTRO NP 12/09/24 Discharged With: Self Critical Care Note Critical Care Time?: No Stability Stability form required: No Heart Score Heart Score: Heart Score Response (Comments) Value History N/A 0 EKG N/A 0 Age N/A 0 Risk Factors N/A 0 Troponin N/A 0 Total 0 I personally scribed for KIERRA CASTRO NP ([email or web address]) on 12/09/24 at 10:47. Electronically submitted by Enmanuel Stover ([email or web address]). KIERRA CASTRO NP Dec 09, 2024 10:40
[2024-12-09] MEDS ORDERED: TETANUS-DIPTH-ACEL PERTUSSIS 0.5ML SYR Tdap IM ONE (10:45)
[2024-12-09] MEDS: cefTRIAXone SOD 1,000 MG VL IM ONE (10:48)
[2024-12-09 10:54] VITALS: BP 115/64; PULSE 84; RESP 16; TEMP 97.8; O2SAT 97
== END 2024-12-09 10:57 | disposition home or self-care (01) ==
LOC: ER 10:08
DX: S70.362A Insect bite (nonvenomous), left thigh, initial encounter (principal); Z98.890 Other specified postprocedural states; W57.XXXA Bitten or stung by nonvenomous insect and other nonvenomous arthropods, initial encounter; Y93.89 Activity, other specified; Y92.89 Other specified places as the place of occurrence of the external cause; Y99.8 Other external cause status
CPT/HCPCS: 96372; 99283; J0696